=== PATIENT | female | born 1990 | race Caucasian/White ===

== ENCOUNTER 2020-08-31 13:15 | Emergency (ER) | payer SELFPAY ==
[2020-08-31 14:01] VITALS: BP 125/56
== END 2020-08-31 14:09 | disposition home or self-care (01) ==
LOC: ED 13:15
DX: M25.561 Pain in right knee (principal); F17.210 Nicotine dependence, cigarettes, uncomplicated; Z90.49 Acquired absence of other specified parts of digestive tract; X50.1XXA Overexertion from prolonged static or awkward postures, initial encounter; Y92.838 Other recreation area as the place of occurrence of the external cause; Y99.0 Civilian activity done for income or pay

== ENCOUNTER → 2020-09-07 | Outpatient (CLI) | payer SELFPAY ==
[2020-08-31 14:01] VITALS: BP 125/56
== END ==
LOC: LAB 12:51
DX: J02.9 Acute pharyngitis, unspecified (principal); Z20.822 Contact with and (suspected) exposure to COVID-19

== ENCOUNTER → 2020-09-21 | Outpatient (CLI) | payer SELFPAY ==
[2020-08-31 14:01] VITALS: BP 125/56
[~2020-09-21] MED LIST: ALLOPURINOL300 M1 PO; MELOXICAM7.5 MG PO; PREDNISONE20 M1 PO; TRIAMCINOLONE AC0.13 TP
== END ==
LOC: LAB 19:17
DX: R11.2 Nausea with vomiting, unspecified (principal)

== ENCOUNTER 2020-09-25 12:51 | Emergency (ER) | payer SELFPAY ==
[2020-09-25 13:53] LABS: WHITE BLOOD COUNT 10.2 K/mm3 (4.8-10.8)
[2020-09-25 13:54] LABS: EOS # 0.4 (0.04-0.40); EOS % 3.6 % (1.0-5.0); HEMATOCRIT 45.3 % (37.0-47.0); HEMOGLOBIN 14.8 g/dL (12.5-16.0); LYMPH# 2.3 (1.50-4.00); MEAN CELL VOLUME 80 fl (78-100); MEAN CORPUSCULAR HEMOGLOBIN 26 pg (27-31); MEAN CORPUSCULAR HGB CONC 33 g/dL (33-37); MEAN PLATELET VOLUME 10.1 fl (7.4-10.4); MONO # 0.6 (0.20-0.80); NEU # 6.8 (1.40-6.50); PLATELET COUNT 278 K/mm3 (130-400); RED BLOOD COUNT 5.67 M/mm3 (4.10-5.30); RED CELL DISTRIBUTION WIDTH 14.3 % (11.5-14.5)
[2020-09-25] MEDS ORDERED: MELOXICAM7.5 MG PO (14:54)
[2020-09-25] MEDS ORDERED: ALLOPURINOL300 M1 PO (14:54)
[2020-09-25] MEDS ORDERED: PREDNISONE20 M1 PO (14:54)
[2020-09-25 15:03] VITALS: BP 138/62
== END 2020-09-25 15:03 | disposition home or self-care (01) ==
LOC: ED 12:51
PROVIDERS: Family Medicine
DX: M19.071 Primary osteoarthritis, right ankle and foot (principal); E79.0 Hyperuricemia without signs of inflammatory arthritis and tophaceous disease; M77.41 Metatarsalgia, right foot; E66.9 Obesity, unspecified; Z68.43 Body mass index [BMI] 50.0-59.9, adult

== ENCOUNTER 2020-10-06 10:44 | Emergency (ER) | payer SELFPAY ==
[~2020-10-06 10:44] MED LIST changes: -TRIAMCINOLONE AC0.13 TP
[2020-10-06 10:56] VITALS: BP 165/84
[2020-10-06] MEDS ORDERED: TRIAMCINOLONE AC0.13 TP (11:10)
== END 2020-10-06 11:23 | disposition home or self-care (01) ==
LOC: ED 10:44
DX: L25.9 Unspecified contact dermatitis, unspecified cause (principal); M10.9 Gout, unspecified; F17.210 Nicotine dependence, cigarettes, uncomplicated

== ENCOUNTER 2023-07-26 23:01 | Emergency (ER) | payer SELFPAY ==
[~2023-07-26] VITALS: Ht 160 cm; Wt 162.3 kg
[~2023-07-26 23:01] MED LIST changes: +CEPHALEXIN500 M1 PO; +GEODON 20 MG20 MG PO; +LEVEMIR100 U/M1 SQ; +METFORMIN HYD1000 MG PO; +METOPROLOL SUCC50 M1 PO; +OZEMPIC1 MG/0.71 SQ; +PROTONIX TR40 M1 PO; +TRIAMCINOLONE AC0.13 TP; +VENLAFAXINE HYD75 MG PO
[2023-07-27 00:04] LABS: CALCIUM 9.5 mg/dL (8.3-10.5)
[2023-07-27 00:05] LABS: BASO # 0.07 K/mm3 (0.02-0.10); EOS # 0.16 K/mm3 (0.04-0.40); EOS % 1.5 % (1.0-5.0); HEMATOCRIT 46.5 % (37.0-47.0); HEMOGLOBIN 15.4 g/dL (12.5-16.0); MEAN CELL VOLUME 81 fl (78-100); MEAN CORPUSCULAR HEMOGLOBIN 27 pg (27-31); MEAN CORPUSCULAR HGB CONC 33 g/dL (33-37); MEAN PLATELET VOLUME 10.3 fl (7.4-10.4); NEU # 7.33 K/mm3 (1.40-6.50); PLATELET COUNT 278 K/mm3 (130-400); RED BLOOD COUNT 5.74 M/mm3 (4.10-5.30); RED CELL DISTRIBUTION WIDTH 14.1 % (11.5-14.5); TOTAL PROTEIN 6.8 g/dL (6.4-8.3); WHITE BLOOD COUNT 10.6 K/mm3 (4.8-10.8)
[2023-07-27 00:07] LABS: TOTAL BILIRUBIN 0.5 mg/dL (0.2-1.2)
[2023-07-27 00:46] VITALS: BP 109/94
== END 2023-07-27 00:46 | disposition home or self-care (01) ==
LOC: ED 23:01
PROVIDERS: Family Medicine
DX: K29.70 Gastritis, unspecified, without bleeding (principal); Z90.49 Acquired absence of other specified parts of digestive tract; Z79.899 Other long term (current) drug therapy
CPT/HCPCS: J2270

== ENCOUNTER 2023-09-25 22:42 | Emergency (ER) | payer SELFPAY ==
[~2023-09-25 22:42] MED LIST changes: +CARAFATE1 GM/10 M1 PO; +PROMETHAZINE12.5 M5 PO
[2023-09-25 23:28] LABS: BASO # 0.03 K/mm3 (0.02-0.10); EOS # 0.14 K/mm3 (0.04-0.40); EOS % 1.1 % (1.0-5.0); HEMATOCRIT 47.2 % (37.0-47.0); HEMOGLOBIN 15.6 g/dL (12.5-16.0); LYMPH# 2.67 K/mm3 (1.50-4.00); MEAN CELL VOLUME 81 fl (78-100); MEAN CORPUSCULAR HEMOGLOBIN 27 pg (27-31); MEAN CORPUSCULAR HGB CONC 33 g/dL (33-37); MEAN PLATELET VOLUME 10.1 fl (7.4-10.4); NEU # 9.08 K/mm3 (1.40-6.50); PLATELET COUNT 318 K/mm3 (130-400); RED BLOOD COUNT 5.83 M/mm3 (4.10-5.30); RED CELL DISTRIBUTION WIDTH 13.6 % (11.5-14.5); WHITE BLOOD COUNT 12.7 K/mm3 (4.8-10.8)
[2023-09-25 23:37] LABS: ALBUMIN 4.1 g/dL (3.5-5.0)
[2023-09-25 23:38] LABS: CALCIUM 9.3 mg/dL (8.3-10.5)
[2023-09-25 23:39] LABS: TOTAL PROTEIN 7.3 g/dL (6.4-8.3)
[2023-09-25 23:41] LABS: TOTAL BILIRUBIN 0.4 mg/dL (0.2-1.2)
[2023-09-25] MEDS ORDERED: Morphine 4 MG/ML VIAL IV ONE (23:45)
[2023-09-25] MEDS ORDERED: Ondansetron 4 MG/2 ML VIAL IV ONE (23:45)
[2023-09-25 23:51] LABS: URINE APPEARANCE CLOUDY (CLEAR); URINE BILIRUBIN NEGATIVE (NEGATIVE); URINE COLOR YELLOW (YELLOW); URINE GLUCOSE 3+ (NEGATIVE); URINE KETONE NEGATIVE (NEGATIVE); URINE NITRATE NEGATIVE (NEGATIVE); URINE PROTEIN(semi-quant) TRACE (NEGATIVE)
[2023-09-25 23:52] LABS: URINE BLOOD 2+ (NEGATIVE); URINE LEUKOCYTE ESTERASE NEGATIVE (NEGATIVE); URINE MUCUS PRESENT (NOT PRESENT)
[2023-09-26] MEDS ORDERED: Iohexol 300 - 100 ML VIAL IV ONE (00:10)
[2023-09-26] MEDS ORDERED: NS 1,000 ML IV SCH (00:30)
[2023-09-26] MEDS ORDERED: HYDROcodone/Acetaminophen 10-325 MG TAB PO ONE (01:15)
[2023-09-26 01:51] VITALS: BP 147/97
== END 2023-09-26 01:51 | disposition home or self-care (01) ==
LOC: ED 22:42
PROVIDERS: Nurse Practitioner
DX: R10.31 Right lower quadrant pain (principal); Z90.49 Acquired absence of other specified parts of digestive tract
CPT/HCPCS: J2270; J2405; J7030; Q9967

== ENCOUNTER 2023-12-21 23:38 | Emergency (ER) | payer SELFPAY ==
[2024-02-10 15:57] LABS: PH-URINE 5.5 (5.0 - 8.0); URINE APPEARANCE CLEAR (CLEAR); URINE COLOR YELLOW (YELLOW); URINE PROTEIN(semi-quant) NEGATIVE (NEGATIVE)
[2024-02-10 15:58] LABS: URINE BILIRUBIN NEGATIVE (NEGATIVE); URINE BLOOD NEGATIVE (NEGATIVE); URINE GLUCOSE TRACE (NEGATIVE); URINE KETONE TRACE (NEGATIVE); URINE LEUKOCYTE ESTERASE NEGATIVE (NEGATIVE); URINE NITRATE NEGATIVE (NEGATIVE)
[2024-02-10 15:59] LABS: URINE MUCUS PRESENT (NOT PRESENT); URINE WBC 0-1 /hpf (0-3)
[2024-02-10 17:02] LABS: HEMOGLOBIN 14.2 g/dL (12.5-16.0); MEAN PLATELET VOLUME 9.8 fl (7.4-10.4); RED BLOOD COUNT 5.28 M/mm3 (4.10-5.30); RED CELL DISTRIBUTION WIDTH 14.5 % (11.5-14.5); WHITE BLOOD COUNT 12.4 K/mm3 (4.8-10.8)
[2024-02-10 17:03] LABS: ACETAMINOPHEN < 1 ug/mL; ALBUMIN 3.7 g/dL (3.5-5.0); ALCOHOL IN-HOUSE < 10 mg/dL (<10); ALT/SGPT 23 U/L (0-55); AST-SGOT 14 U/L (5-34); CALCIUM 9.4 mg/dL (8.3-10.5); CARBON DIOXIDE 21 mmol/L (22-29); GLUCOSE 203 mg/dL (65-105); SODIUM 140 mmol/L (136-145); TOTAL BILIRUBIN 0.2 mg/dL (0.2-1.2); TOTAL PROTEIN 6.5 g/dL (6.4-8.3)
== END 2023-12-22 07:38 | disposition home or self-care (01) ==
LOC: ED 23:38
PROVIDERS: Family Medicine
DX: R46.89 Other symptoms and signs involving appearance and behavior (principal)